=== PATIENT | female | born 1990 | race American Indian/Alaskan Native ===

== ENCOUNTER 2020-12-22 07:45 | Outpatient (CLI) | payer BC ==
--- NOTE | 2020-12-22 08:30 | Cat Scan Report ---
CT ABDOMEN AND PELVIS WITHOUT CONTRAST HISTORY: MAIN. COMPARISON: None. TECHNIQUE: Helical CT images of the abdomen and pelvis were obtained without administration of intrav enous contrast. Sagittal and coronal reformatted images were reviewed. All CT scans at this location are performed using CT dose reduction for ALARA by means of automated exposure control. FINDINGS: Abdomen/pelvis: The uterus is markedly enlarged and lobular containing multiple large fibroids. The uterus measures 30 cm craniocaudal, 16 cm AP and 24 cm transverse. The uterine fundus extends all the way up to the level of the gallbladder. Numerous large fibroids are evident. The largest fibroid in the lower anterior uterine wall measures 17 cm and demonstrates mild cystic degeneration. The endomet rial stripe is not identified due to the severe fibroid disease. The liver, biliary system, pancreas, spleen, kidneys, adrenal glands and bowel loops are unremarkable although nearly all organs are displaced to the lateral abdomen. The appendix is identified and unre markable. The bladder is empty. The adnexal regions are unremarkable. No evidence for free fluid, free air, inflammatory changes or adenopathy. The aorta is normal caliber . Lungs/bones: No significant abnormality. IMPRESSION: Severe uterine fibroid disease as described. Signer Name: Brant Barragan Jr, MD Signed: 12/22/2020 8:26 AM Workstation Name: [id number]
== END 2020-12-22 07:46 | disposition home or self-care (01) ==
LOC: CT 07:45
PROVIDERS: ATTEND Obstetrics & Gynecology
DX: D25.9 Leiomyoma of uterus, unspecified (principal); N85.2 Hypertrophy of uterus
CPT/HCPCS: 74176

== ENCOUNTER 2021-02-06 11:00 | Observation (INO) | payer BC ==
[2021-02-06] MEDS ORDERED: ACETAMINOPHEN 500 MG TAB PO PRN (11:18)
[2021-02-06] MEDS ORDERED: ONDANSETRON 4 MG/2 ML INJ IV PRN (11:18)
--- NOTE | 2021-02-06 11:18 | History and Physical Report ---
History of Present Illness Date of examination: 02/06/21 Date of admission: 02/09/21 Chief complaint: fibroids/ heavy bleeding History of present illness: Pt noted at pre op appointment on 02/05/21 to have h/h of 6.9/22. Pt during periods has felt some dizziness but does not have at this time. she denies sob, chest pain or palpitations. I d/w pt need for admission for transfusion prior to scheduled procedure on 02/11/21. Pt agrees with plan of care and is being a dmitted for transfusion at this time. Past History Past Medical History: other (fibroids, anemia) Past Surgical History: no surgical history [employer] History: denies: abnormal PAP smear Social history: no significant social history, single Medications and Allergies Allergies Allergy/AdvReac Type Severity Reaction Status Date / Time codeine Allergy Rash Unverified 02/03/21 13:36 Home Medications Medication Instructions Recorded Confirmed Last Taken Type No Known Home Medications [No 02/04/21 02/04/21 Unknown History Reported Home Medications] Review of Systems All systems: negative - Physical Exam Cardiovascular: Normal S1 Lungs: Positive: Clear to auscultation, Normal air movement Abdomen: Positive: soft. Negative: distention, tenderness, guarding Genitourinary (Female): Positive: other (deferred until EUA on date of sx) Uterus: Positive: enlarged Results All other labs normal. Assessment and Plan - Patient Problems (1) Anemia Status: Acute Qualifiers: Iron deficiency anemia type: chronic blood loss Plan to address problem: -admit for 2 untis -d/c home when completed -return to hospital in the am for abdominal myomectomy (2) Fibroids Status: Acute (3) Menorrhagia with regular cycle Status: Acute
[2021-02-09] MEDS ORDERED: SODIUM CHLORIDE 0.9% 500 ML 500 ML IV SCH ×2 (06:00→21:00)
[2021-02-09] MEDS ORDERED: SODIUM CHLORIDE 0.9% 1000 ML 0 ML ONE (15:14)
[2021-02-09] MEDS ORDERED: SODIUM CHLORIDE 0.9% 1000 ML 1,000 ML ONE (15:52)
[2021-02-09] MEDS ORDERED: ACETAMINOPHEN 500 MG TAB PO PRN (21:00)
[2021-02-09] MEDS ORDERED: ONDANSETRON 4 MG/2 ML INJ IV PRN (21:01)
[2021-02-10 02:55] VITALS: BP 118/65
[2021-02-10 04:21] LABS: Hematocrit 30.4 % (30.3-42.9); Hemoglobin 9.3 gm/dl (10.1-14.3)
--- NOTE | 2021-02-10 05:58 | Discharge Summary ---
Providers - Providers Date of Admission: 02/09/21 13:12 Date of discharge: 02/10/21 Attending physician: ERNESTO TIERNEY Primary care physician: ERNESTO TIERNEY Hospitalization Reason for admission: other (anemia /transfusioin prior to surgery) Procedure: other (transfusion of 2 untis of blood) Hospital course: Pt was admitted for transfusion for surgery scheduled for today and her having symptomatic anemai. Due to confusion with account numbers, pt transusion was delayed several hours but was eventually completed this am. Pt desired to be d/c home prior to surgery. Pt dischaged home at about 4am today as per RN taking care of pt. Condition at discharge: Good Disposition: DC-01 TO HOME OR SELFCARE - Discharge Diagnoses (1) Anemia Status: Acute Qualifiers: Iron deficiency anemia type: chronic blood loss (2) Fibroids Status: Acute (3) Menorrhagia with regular cycle Status: Acute Plan - Provider Discharge Summary Activity: routine Diet: other (NPO at this time in prep for surgery) Additional instructions: [] Smoking cessation referral if applicable(refer to patient education folder for contact #) [] Refer to [facility] Booklet Call your doctor immediately for: * Fever > 100.5 * Heavy vaginal bleeding ( >1 pad per hour) * Severe persistent headache * Shortness of breath * Reddened, hot, painful area to leg or breast * Drainage or odor from incision. * Keep incision clean and dry at all times and follow doctor's instructions regarding bathing/showering - Follow up plan Follow up: ERNESTO TIERNEY MD [Primary Care Provider] - 7 Days Forms: [facility] Discharge Summary, Discharge Signature Page
[2021-02-10] MEDS ORDERED: fentaNYL 100 MCG/2 ML INJ IV PRN (06:00)
[2021-02-10] MEDS ORDERED: SCOPOLAMINE TRANSDERMAL PATCH 72 HR TD NR (06:00)
[2021-02-10] MEDS ORDERED: LACTATED RINGERS 1,000 ML IV SCH (06:00)
[2021-02-10] MEDS ORDERED: ACETAMINOPHEN 500 MG TAB PO SCH (06:00)
[2021-02-10] MEDS ORDERED: GABAPENTIN 300 MG CAP PO NR (06:00)
[2021-02-10] MEDS ORDERED: CELECOXIB 200 MG CAP PO NR (06:00)
[2021-02-10] MEDS ORDERED: MIDAZOLAM 2 MG/2 ML INJ IV NR (06:00)
== END 2021-02-10 03:30 | disposition home or self-care (01) ==
LOC: 3A 11:00 → UNDOADMOB 11:00 → OB 02-09 13:12
PROVIDERS: ADMIT Obstetrics & Gynecology; ATTEND Obstetrics & Gynecology
DX: D64.9 Anemia, unspecified (principal)
CPT/HCPCS: 36415; 36430; 85014; 85018; 86850; 86900; 86901; 86920; G0378; G0379; J7040; P9016